=== PATIENT | female | born 1970 | race Caucasian/White ===

== ENCOUNTER 2024-01-16 13:26 | Observation (INO) | payer MEDICARE ==
[2024-01-16] MEDS ORDERED: Sodium Chloride 0.9% 1000 ML 1,000 ML ONE (14:05)
[2024-01-16] MEDS ORDERED: TYLENOL 325 MG ONE (14:05)
[2024-01-16 14:06] LABS: Absolute Neutrophil Ct (ANC) 15.36 x10^3/uL (1.4-6.9); BASOPHIL % 0.2 % (0.0-0.4); Basophil (Absolute #) 0.03 x10^3/uL (0-0.4); Eosinophil % 0.1 % (0.00-5.0); Eosinophil (Absolute #) 0.01 x10^3/uL (0-0.5); Hematocrit 45.3 % (35-47); Hemoglobin 15.2 g/dL (12.0-16.0); IMMATURE GRAN # 0.07 x10^3u/L (0.00-0.03); IMMATURE GRAN % 0.4 % (0.00-0.4); Lymphocyte (Absolute #) 0.63 x10^3/uL (1.0-4.6); Lymphocytes % 3.8 % (24.0-44.0); Mean Cell Volume 93.2 fL (78-100); Mean Corpuscular Hemoglobin 31.3 pg (26-32); Mean Corpuscular Hgb Concent. 33.6 g/dL (32-36); Mean Platelet Volume 12.2 fL (7.5-11.0); Monocyte (Absolute #) 0.63 x10^3/uL (0.0-1.3); Monocytes % 3.8 % (0.0-12.0); Neutrophil % 91.7 % (36.0-66.0); Platelet Count 126 x10^3/uL (150-450); Red Blood Count 4.86 x10^6/uL (4.1-5.4); Red Cell Distribution Width 13.2 % (11.5-14.0); White Blood Count 16.7 x10^3/uL (4.0-10.5)
--- NOTE | 2024-01-16 14:15 | XRAY ---
Indication: Fever. Comparison: None Portable chest demonstrates normal heart and lungs with incidental left base calcified granuloma. Bony thorax intact with osteopenia and mild degenerative changes.
[2024-01-16] MEDS: TYLENOL 325 MG PO STA (14:16)
[2024-01-16] MEDS: Sodium Chloride 0.9% 1000 ML 1,000 ML IV STA (14:18)
[2024-01-16] MEDS ORDERED: Hydromorphone 1 mg/ml Injection ONE (14:34)
[2024-01-16] MEDS: Hydromorphone 1 mg/ml Injection IV ONE (14:35)
[2024-01-16 14:36] LABS: ALBUMIN 3.2 g/dL (3.5-5.0); ANION GAP 11.5 MEQ/L (5-15); BILIRUBIN,TOTAL 0.5 mg/dL (0.2-1.3); Calcium 8.7 mg/dL (8.4-10.2); Creatinine 1 1.99 mg/dL (0.52-1.04); EST GLOMERULAR FILTRATION RATE 29.1 ML/MIN; Potassium 3.5 mmol/L (3.5-5.1); Total Protein 6.5 g/dL (6.3-8.2)
[2024-01-16] MEDS ORDERED: ROCEPHIN 1 GM / 100 ML NaCl 1 GM/100 ML IVPB IV ONE (14:42)
[2024-01-16] MEDS: ROCEPHIN 1 GM / 100 ML NaCl 1 GM/100 ML IVPB IV ONE (14:46)
[2024-01-16 14:50] LABS: Appearance Clear (Clear); Bacteria Moderate /HPF (None Seen); Bilirubin Negative (Negative); Blood Negative (Negative); Epithelial Cells None Seen /HPF (None Seen); Glucose, Urine Negative (Negative); Hyaline Casts NONE SEEN /LPF (0-2); Ketones Negative (Negative); Leukocyte Esterase Small (Negative); Nitrite Negative (Negative); Ph 5.5 (4.6-8.0); Protein,Urine Dip 100 (Negative); RBC 0-2 /HPF (0-5)
[2024-01-16 14:54] LABS: ADD URINE CULTURE? ORDERED SEPARATELY (NO)
[2024-01-16 15:01] LABS: INFLUENZA A NEGATIVE (NEGATIVE); INFLUENZA B NEGATIVE (NEGATIVE); RESPIRATORY SYNCTIAL VIRUS NEGATIVE (NEGATIVE); SARS-CoV-2 Xpert Express NEGATIVE (NEGATIVE)
--- NOTE | 2024-01-16 16:08 | ERPHSYRPT ---
- History of Present Illness Time Seen by Provider: 01/16/24 13:45 Source: patient, family Exam Limitations: no limitations Patient Subjective Stated Complaint: Pt states "I have something going on with my kidneys. I have also had high fever." Triage Nursing Assessment: Pt presented alert and oriented X 3, skin pwd. Pt ambulates with a slow gait, able to speak in clear full setnencse. Physician History: Patient is a 53-year-old white female who presents with a complaint of being ill for a week with fevers at home to 102.9 she complains of a headache anorexia fever foul-smelling urine and pain in her right flank. Timing/Duration: week(s) (1), worse Fever Severity: moderate Associated Symptoms: abdominal pain, headache Allergies/Adverse Reactions: ethinyl estradiol [From [facility] ()] Allergy (Mild, Verified 01/16/24 13:40) levonorgestrel [From [facility] ()] Allergy (Mild, Verified 01/16/24 13:40) Home Medications: Unobtainable 01/16/24 [History] Hx Tetanus, Diphtheria Vaccination/Date Given: No Hx Influenza Vaccination/Date Given: No Hx Pneumococcal Vaccination/Date Given: No Immunizations Up to Date: No Travel Risk - International Travel Have you traveled outside of the country in past 3 weeks: No - Emerging Infectious Disease Are you exhibiting symptoms associated with any current EIDs: Yes Symptoms: Fever, Headaches/Body Aches/ - Review of Systems Constitutional: Fever, Chills Eyes: No Symptoms Ears, Nose, & Throat: No Symptoms Respiratory: No Cough, No Dyspnea Cardiac: No Chest Pain, No Edema, No Syncope Abdominal/Gastrointestinal: No Abdominal Pain, No Nausea, No Vomiting, No Diarrhea Genitourinary Symptoms: No Dysuria Musculoskeletal: No Back Pain, No Neck Pain Skin: No Rash Neurological: No Dizziness, No Focal Weakness, No Sensory Changes Psychological: No Symptoms Endocrine: No Symptoms All Other Systems: Reviewed and Negative - Past Medical History Pertinent Past Medical History: Yes Neurological History: Migraines ENT History: No Pertinent History Cardiac History: High Cholesterol Respiratory History: No Pertinent History Endocrine Medical History: Diabetes Type II, Hypothyroidism Musculoskeletal History: Arthritis GI Medical History: GERD History: No Pertinent History Psycho-Social History: Anxiety, Depression Female Reproductive Disorders: No Pertinent History - Past Surgical History Past Surgical History: Yes Other Surgical History: c section x 3. sandy - Social History Smoking Status: Current every day smoker How long have you smoked: years Exposure to second hand smoke: Yes Drug Use: none - Nursing Vital Signs Nursing Vital Signs: Initial Vital Signs Temperature 101.2 F 01/16/24 13:33 Pulse Rate 108 H 01/16/24 13:33 Respiratory Rate 20 01/16/24 13:33 Blood Pressure 149/89 01/16/24 13:33 O2 Sat by Pulse Oximetry 95 01/16/24 13:33 Pain Scale Pain Intensity 3 - Physical Exam General Appearance: moderate distress, alert Eye Exam: PERRL/EOMI ENT Exam: normal ENT inspection, No pharyngeal erythema, No tonsillar exudate Neck Exam: supple, full range of motion, No meningismus Respiratory Exam: normal breath sounds, lungs clear, no respiratory distress Cardiovascular/Chest Exam: normal heart sounds, regular rate/rhythm, No murmur, No edema Gastrointestinal/Abdominal Exam: soft, non tender, no distention Extremity Exam: non-tender, normal range of motion, normal inspection, normal capillary refill Neurologic Exam: alert, oriented x 3, cooperative, advance scout II-XII nml as tested, normal mood/affect, sensation nml, No motor deficits Skin Exam: normal color, warm, dry, No rash SpO2 Interpretation: normal SpO2: 94 O2 Delivery: Room Air - Course Nursing assessment & vital signs reviewed: Yes - Radiology Exams Chest X-ray Interpretation: Reviewed by me Ordered Tests: Active Orders 24 hr Category Date Time [facility] [Cath for Specimen-Straight] STAT Care 01/16/24 14:34 Active CHEST 1 VIEW (PORTABLE) Stat Exams 01/16/24 13:54 Completed BLOOD CULTURE Stat Lab 01/16/24 14:15 Received CBC W DIFF Stat Lab 01/16/24 14:03 Completed CMP Stat Lab 01/16/24 14:03 Completed CULTURE,URINE Stat Lab 01/16/24 14:33 Received Lactic Acid Stat Lab 01/16/24 13:53 Completed MONO SCREEN Stat Lab 01/16/24 14:03 Completed UA W/RFX UR CULTURE Stat Lab 01/16/24 14:33 Completed Medication Summary Discontinued Medications Generic Name Dose Route Start Last Admin Trade Name Freq PRN Reason Stop Dose Admin Acetaminophen 650 mg 01/16/24 13:53 01/16/24 14:16 Acetaminophen 325 Mg Tablet PO 01/16/24 13:54 650 mg STAT STA Administration Acetaminophen Confirm 01/16/24 14:05 Acetaminophen 325 Mg Tablet Administered 01/16/24 14:06 Dose 650 mg .ROUTE .STK-MED ONE Droperidol 1.25 mg 01/16/24 14:54 01/16/24 14:54 Droperidol 5 Mg/2 Ml Vial IV 01/16/24 14:55 1.25 mg STAT ONE Administration Droperidol Confirm 01/16/24 14:53 Droperidol 5 Mg/2 Ml Vial Administered 01/16/24 14:54 Dose 5 mg .ROUTE .STK-MED ONE Hydromorphone HCl 1 mg 01/16/24 14:26 01/16/24 14:35 Hydromorphone 1 Mg/1ml Inj IV 01/16/24 14:27 1 mg STAT ONE Administration Hydromorphone HCl Confirm 01/16/24 14:34 Hydromorphone 1 Mg/1ml Inj Administered 01/16/24 14:35 Dose 1 mg .ROUTE .STK-MED ONE Sodium Chloride 1,000 mls @ 999 mls/hr 01/16/24 13:53 01/16/24 15:20 Sodium Chloride 0.9% 1000 Ml IV 01/16/24 14:53 Infused .Q1H1M STA Infusion Sodium Chloride Confirm 01/16/24 14:05 Sodium Chloride 0.9% 1000 Ml Administered 01/16/24 14:06 Dose 1,000 mls @ ud .ROUTE .STK-MED ONE Ceftriaxone Sodium Confirm 01/16/24 14:42 Rocephin 1 Gm / 100 Ml Nacl Administered 01/16/24 14:43 Dose 1 gm in 100 mls @ ud IV .STK-MED ONE Ceftriaxone Sodium 1 gm in 100 mls @ 200 mls/hr 01/16/24 14:43 01/16/24 15:19 Rocephin 1 Gm / 100 Ml Nacl IV 01/16/24 15:12 Infused STAT ONE Infusion Lab/Rad Data: Laboratory Result Diagrams 01/16/24 14:03 01/16/24 14:03 Laboratory Results 01/16/24 01/16/24 01/16/24 Range/Units 14:33 14:15 14:15 WBC (4.0-10.5) x10^3/uL RBC (4.1-5.4) x10^6/uL Hgb (12.0-16.0) g/dL Hct (35-47) % MCV (78-100) fL MCH (26-32) pg MCHC (32-36) g/dL RDW (11.5-14.0) % Plt Count (150-450) x10^3/uL MPV (7.5-11.0) fL Gran % (36.0-66.0) % Immature Gran % (Auto) (0.00-0.4) % Nucleat RBC Rel Count (0.00-0.1) % Eos # (Auto) (0-0.5) x10^3/uL Immature Gran # (Auto) (0.00-0.03) x10^3u/L Absolute Lymphs (auto) (1.0-4.6) x10^3/uL Absolute Monos (auto) (0.0-1.3) x10^3/uL Absolute Nucleated RBC (0.00-0.01) x10^3u/L Lymphocytes % (24.0-44.0) % Monocytes % (0.0-12.0) % Eosinophils % (0.00-5.0) % Basophils % (0.0-0.4) % Absolute Granulocytes (1.4-6.9) x10^3/uL Basophils # (0-0.4) x10^3/uL Sodium (135-145) mmol/L Potassium (3.5-5.1) mmol/L Chloride (98-107) mmol/L Carbon Dioxide (22-30) mmol/L Anion Gap (5-15) MEQ/L BUN (7-17) mg/dL Creatinine (0.52-1.04) mg/dL Estimated GFR ML/MIN Glucose (74-106) mg/dL Lactic Acid (0.4-2.0) Calcium (8.4-10.2) mg/dL Total Bilirubin (0.2-1.3) mg/dL AST (14-36) U/L ALT (0-35) U/L Alkaline Phosphatase (38-126) U/L Serum Total Protein (6.3-8.2) g/dL Albumin (3.5-5.0) g/dL Urine Color Yellow (Yellow) Urine Appearance Clear (Clear) Urine pH 5.5 (4.6-8.0) Ur Specific [place] 1.010 (1.005-1.030) Urine Protein 100 A (Negative) Urine Glucose (UA) Negative (Negative) mg/dL Urine Ketones Negative (Negative) Urine Blood Negative (Negative) Urine Nitrite Negative (Negative) Urine Bilirubin Negative (Negative) Urine Urobilinogen 1.0 A (0.2) mg/dL Ur Leukocyte Esterase Small A (Negative) U Hyaline Cast (Auto) NONE SEEN (0-2) /LPF Urine Microscopic RBC 0-2 (0-5) /HPF Urine Microscopic WBC 11-20 A (0-5) /HPF Ur Epithelial Cells None Seen (None Seen) /HPF Urine Bacteria Moderate A (None Seen) /HPF Urine Culture Reflexed ORDERED SEPARATELY (NO) Monoscreen (NEGATIVE) Influenza Type A Ag NEGATIVE (NEGATIVE) Influenza Type B Ag NEGATIVE (NEGATIVE) RSV (PCR) NEGATIVE (NEGATIVE) SARS-CoV-2 (PCR) NEGATIVE (NEGATIVE) Group A Strep Antibody NOT DETECTED (NEGATIVE) 01/16/24 01/16/24 01/16/24 Range/Units 14:03 14:03 14:03 WBC 16.7 H (4.0-10.5) x10^3/uL RBC 4.86 (4.1-5.4) x10^6/uL Hgb 15.2 (12.0-16.0) g/dL Hct 45.3 (35-47) % MCV 93.2 (78-100) fL MCH 31.3 (26-32) pg MCHC 33.6 (32-36) g/dL RDW 13.2 (11.5-14.0) % Plt Count 126 L (150-450) x10^3/uL MPV 12.2 H (7.5-11.0) fL Gran % 91.7 H (36.0-66.0) % Immature Gran % (Auto) 0.4 (0.00-0.4) % Nucleat RBC Rel Count 0.0 (0.00-0.1) % Eos # (Auto) 0.01 (0-0.5) x10^3/uL Immature Gran # (Auto) 0.07 H (0.00-0.03) x10^3u/L Absolute Lymphs (auto) 0.63 L (1.0-4.6) x10^3/uL Absolute Monos (auto) 0.63 (0.0-1.3) x10^3/uL Absolute Nucleated RBC 0.00 (0.00-0.01) x10^3u/L Lymphocytes % 3.8 L (24.0-44.0) % Monocytes % 3.8 (0.0-12.0) % Eosinophils % 0.1 (0.00-5.0) % Basophils % 0.2 (0.0-0.4) % Absolute Granulocytes 15.36 H (1.4-6.9) x10^3/uL Basophils # 0.03 (0-0.4) x10^3/uL Sodium 135 (135-145) mmol/L Potassium 3.5 (3.5-5.1) mmol/L Chloride 102 (98-107) mmol/L Carbon Dioxide 24 (22-30) mmol/L Anion Gap 11.5 (5-15) MEQ/L BUN 44 H (7-17) mg/dL Creatinine 1.99 H (0.52-1.04) mg/dL Estimated GFR 29.1 ML/MIN Glucose 119 H (74-106) mg/dL Lactic Acid (0.4-2.0) Calcium 8.7 (8.4-10.2) mg/dL Total Bilirubin 0.50 (0.2-1.3) mg/dL AST 34 (14-36) U/L ALT 31 (0-35) U/L Alkaline Phosphatase 177 H (38-126) U/L Serum Total Protein 6.5 (6.3-8.2) g/dL Albumin 3.2 L (3.5-5.0) g/dL Urine Color (Yellow) Urine Appearance (Clear) Urine pH (4.6-8.0) Ur Specific [place] (1.005-1.030) Urine Protein (Negative) Urine Glucose (UA) (Negative) mg/dL Urine Ketones (Negative) Urine Blood (Negative) Urine Nitrite (Negative) Urine Bilirubin (Negative) Urine Urobilinogen (0.2) mg/dL Ur Leukocyte Esterase (Negative) U Hyaline Cast (Auto) (0-2) /LPF Urine Microscopic RBC (0-5) /HPF Urine Microscopic WBC (0-5) /HPF Ur Epithelial Cells (None Seen) /HPF Urine Bacteria (None Seen) /HPF Urine Culture Reflexed (NO) Monoscreen NEGATIVE (NEGATIVE) Influenza Type A Ag (NEGATIVE) Influenza Type B Ag (NEGATIVE) RSV (PCR) (NEGATIVE) SARS-CoV-2 (PCR) (NEGATIVE) Group A Strep Antibody (NEGATIVE) 01/16/24 Range/Units 13:53 WBC (4.0-10.5) x10^3/uL RBC (4.1-5.4) x10^6/uL Hgb (12.0-16.0) g/dL Hct (35-47) % MCV (78-100) fL MCH (26-32) pg MCHC (32-36) g/dL RDW (11.5-14.0) % Plt Count (150-450) x10^3/uL MPV (7.5-11.0) fL Gran % (36.0-66.0) % Immature Gran % (Auto) (0.00-0.4) % Nucleat RBC Rel Count (0.00-0.1) % Eos # (Auto) (0-0.5) x10^3/uL Immature Gran # (Auto) (0.00-0.03) x10^3u/L Absolute Lymphs (auto) (1.0-4.6) x10^3/uL Absolute Monos (auto) (0.0-1.3) x10^3/uL Absolute Nucleated RBC (0.00-0.01) x10^3u/L Lymphocytes % (24.0-44.0) % Monocytes % (0.0-12.0) % Eosinophils % (0.00-5.0) % Basophils % (0.0-0.4) % Absolute Granulocytes (1.4-6.9) x10^3/uL Basophils # (0-0.4) x10^3/uL Sodium (135-145) mmol/L Potassium (3.5-5.1) mmol/L Chloride (98-107) mmol/L Carbon Dioxide (22-30) mmol/L Anion Gap (5-15) MEQ/L BUN (7-17) mg/dL Creatinine (0.52-1.04) mg/dL Estimated GFR ML/MIN Glucose (74-106) mg/dL Lactic Acid 2.0 (0.4-2.0) Calcium (8.4-10.2) mg/dL Total Bilirubin (0.2-1.3) mg/dL AST (14-36) U/L ALT (0-35) U/L Alkaline Phosphatase (38-126) U/L Serum Total Protein (6.3-8.2) g/dL Albumin (3.5-5.0) g/dL Urine Color (Yellow) Urine Appearance (Clear) Urine pH (4.6-8.0) Ur Specific [place] (1.005-1.030) Urine Protein (Negative) Urine Glucose (UA) (Negative) mg/dL Urine Ketones (Negative) Urine Blood (Negative) Urine Nitrite (Negative) Urine Bilirubin (Negative) Urine Urobilinogen (0.2) mg/dL Ur Leukocyte Esterase (Negative) U Hyaline Cast (Auto) (0-2) /LPF Urine Microscopic RBC (0-5) /HPF Urine Microscopic WBC (0-5) /HPF Ur Epithelial Cells (None Seen) /HPF Urine Bacteria (None Seen) /HPF Urine Culture Reflexed (NO) Monoscreen (NEGATIVE) Influenza Type A Ag (NEGATIVE) Influenza Type B Ag (NEGATIVE) RSV (PCR) (NEGATIVE) SARS-CoV-2 (PCR) (NEGATIVE) Group A Strep Antibody (NEGATIVE) - Progress Progress: improved Medical Desision Making - Independent Historian Additional History obtained from: Family - Discussion of managment Care discussed with:: hospitalist (Dr Lawrence) Reviewed:: Test results Agreed on:: Treatment plan, place in obs Will see patient: in hospital - Diagnostic Testing Diagnostic test were ordered, analyzed, and reviewed by me: Yes Radiological Interpretation: Reviewed by me - Risk of complications The pt has a mod risk of morbidity or mortality based on: Need for prescription drug management - Departure Departure Disposition: Observation Clinical Impression: Urinary tract infection, Acute kidney injury Condition: Fair Critical Care Time: No Referrals: KEE ADLER PA [Primary Care Provider] - Follow up/PCP as directed
--- NOTE | 2024-01-16 16:36 | PCM.HP ---
History of Present Illness - Chief Complaint Chief Complaint: Urinary tract infection Date: 01/16/24 History of Present Illness: is a 53 year old female with PMHX of migraines, hyperlipidemia, Type II DM, hypothyroidism, OA, GERD, anxiety, depression, and daily smoker. Pt came in to the ER today stating "I have something going on with my kidneys and I have also had high fever." She C/O being ill for over 1 week with fevers at home up to 102.9. She also complains of a headache, fever, foul-smelling urine, leg cramps,and pain in her right flank. She has intermittent, stabbing pain around umbilical area 6/10 pain. Nothing makes sxs worse or better. She has not tried anything to help her sxs. She reports chronic diarrhea since gallbladder removed and does take medication for this. She does not have a hx of repeat UTI's. Labs shows IMELDA and UTI. She was treated in ER with 1LNS fluid bolus and Ceftriaxone. Will continue IVF and antibiotics. - Review of Systems Constitutional: Fever, Weakness, No Chills Eyes: No Symptoms Ears, Nose, & Throat: No Symptoms Respiratory: No Cough, No Short Of Breath Cardiac: No Chest Pain, No Edema, No Syncope Abdominal/Gastrointestinal: Abdominal Pain, Diarrhea (chronic ), No Nausea, No Vomiting Genitourinary Symptoms: Dysuria, Other (foul smelling urine) Musculoskeletal: Other (leg cramps), No Back Pain, No Neck Pain Skin: No Rash Neurological: No Dizziness, No Focal Weakness, No Sensory Changes Psychological: No Symptoms Endocrine: No Symptoms Hematologic/Lymphatic: No Symptoms Immunological/Allergic: No Symptoms Medications & Allergies Home Medications: Home Medication List Albuterol Sulfate [Proair Respiclick] 2 puff IH Q4H PRN PRN 01/16/24 [History Confirmed 01/16/24] Buspirone HCl 30 mg PO BIDPRN PRN 01/16/24 [History Confirmed 01/16/24] Colestipol HCl [Colestid] 2 gm PO DAILY 01/16/24 [History Confirmed 01/16/24] Levothyroxine Sodium 150 Mcg [Synthroid 150 Mcg] 150 mcg PO DAILY 01/16/24 [History Confirmed 01/16/24] Metformin HCl 500 mg [Glucophage 500 MG] 1,000 mg PO BIDWM 01/16/24 [History Confirmed 01/16/24] Mirtazapine [Remeron] 15 mg PO HS 01/16/24 [History Confirmed 01/16/24] Oxycodone HCl 5 mg Ir [Oxy-IR 5 MG] 10 mg PO Q6HPRN PRN 01/16/24 [History Confirmed 01/16/24] PANTOPRAZOLE 40 mg Tablet [Protonix 40MG Tablet] 40 mg PO DAILY 01/16/24 [History Confirmed 01/16/24] Simvastatin [Zocor] 40 mg PO HS 01/16/24 [History Confirmed 01/16/24] Vilazodone HCl 40 mg PO DAILY 01/16/24 [History Confirmed 01/16/24] Zolpidem Tartrate 10 mg PO HS 01/16/24 [History Confirmed 01/16/24] ondansetron HCL [Ondansetron HCl] 4 mg PO Q6HPRN PRN 01/16/24 [History Confirmed 01/16/24] Allergies/Adverse Reactions: Allergies Allergy/AdvReac Type Severity Reaction Status Date / Time ethinyl estradiol Allergy Mild Verified 01/16/24 13:40 [From Seasonale (91)] levonorgestrel Allergy Mild Verified 01/16/24 13:40 [From Seasonale (91)] - Past Medical History Past Medical History: Yes Neurological History: Migraines ENT History: No Pertinent History Cardiac History: High Cholesterol Respiratory History: No Pertinent History Endocrine Medical History: Diabetes Type II, Hypothyroidism Musculoskelatal History: Arthritis GI Medical History: GERD History: No Pertinent History Pyscho-Social History: Anxiety, Depression Reproductive Disorders: No Pertinent History - Past Surgical History Past Surgical History: Yes Other Surgical History: c section x 3. sandy - Social History Smoking Status: Current every day smoker How long have you smoked: years Exposure to second hand smoke: Yes Alcohol: None Drug Use: none - Social Determinants of Health Will the patient participate in the screening: Yes Do you worry about a steady place to live?: No Do you have any problems with any of the following?: No known problems In the past 12 months,have you had to go without utilities?: No Have you or anyone in your house had to go without enough: No Transportation Issues: No Has anyone in your support network made you feel unsafe?: No - Physical Exam Vital Signs: Vital Signs - 24 hr Temp Pulse Resp BP BP Pulse Ox 01/16/24 16:14 94 L 01/16/24 16:00 102 H 15 113/94 96 01/16/24 15:45 104 H 16 113/80 94 L 01/16/24 15:30 133/80 90 L 01/16/24 15:15 110 H 16 150/82 92 L 01/16/24 15:00 105 H 127/80 96 01/16/24 14:46 165/121 95 01/16/24 14:45 95 01/16/24 14:40 96 01/16/24 14:30 94 L 01/16/24 14:20 106 H 93 L 01/16/24 14:17 94 L 01/16/24 14:00 130/85 95 01/16/24 13:45 138/79 93 L 01/16/24 13:34 149/89 86 L 01/16/24 13:33 101.2 F 108 H 20 149/89 95 General Appearance: mild distress, alert, obese Neurologic Exam: alert, oriented x 3, cooperative, normal mood/affect, nml cerebellar function, nml station & gait, sensation nml, No motor deficits Eye Exam: PERRL/EOMI, eyes nml inspection Ears, Nose, Throat Exam: normal ENT inspection, TMs normal, pharynx normal, moist mucous membranes Neck Exam: normal inspection, non-tender, supple, full range of motion Respiratory Exam: normal breath sounds, lungs clear, No respiratory distress Cardiovascular Exam: regular rate/rhythm, normal heart sounds, normal peripheral pulses, tachycardia Gastrointestinal/Abdomen Exam: soft, normal bowel sounds, tenderness (periumbilical), No mass Back Exam: normal inspection, normal range of motion, No CVA tenderness, No vertebral tenderness Extremity Exam: normal inspection, normal range of motion, pelvis stable, No lurdes's sign Skin Exam: normal color, warm, dry, No rash Lymphatic Exam: No adenopathy Results - Labs Lab/Micro Results: Lab Results-Last 24 Hours 01/16/24 01/16/24 01/16/24 Range/Units 13:53 14:03 14:03 WBC 16.7 H (4.0-10.5) x10^3/uL RBC 4.86 (4.1-5.4) x10^6/uL Hgb 15.2 (12.0-16.0) g/dL Hct 45.3 (35-47) % MCV 93.2 (78-100) fL MCH 31.3 (26-32) pg MCHC 33.6 (32-36) g/dL RDW 13.2 (11.5-14.0) % Plt Count 126 L (150-450) x10^3/uL MPV 12.2 H (7.5-11.0) fL Gran % 91.7 H (36.0-66.0) % Immature Gran % (Auto) 0.4 (0.00-0.4) % Nucleat RBC Rel Count 0.0 (0.00-0.1) % Eos # (Auto) 0.01 (0-0.5) x10^3/uL Immature Gran # (Auto) 0.07 H (0.00-0.03) x10^3u/L Absolute Lymphs (auto) 0.63 L (1.0-4.6) x10^3/uL Absolute Monos (auto) 0.63 (0.0-1.3) x10^3/uL Absolute Nucleated RBC 0.00 (0.00-0.01) x10^3u/L Lymphocytes % 3.8 L (24.0-44.0) % Monocytes % 3.8 (0.0-12.0) % Eosinophils % 0.1 (0.00-5.0) % Basophils % 0.2 (0.0-0.4) % Absolute Granulocytes 15.36 H (1.4-6.9) x10^3/uL Basophils # 0.03 (0-0.4) x10^3/uL Sodium 135 (135-145) mmol/L Potassium 3.5 (3.5-5.1) mmol/L Chloride 102 (98-107) mmol/L Carbon Dioxide 24 (22-30) mmol/L Anion Gap 11.5 (5-15) MEQ/L BUN 44 H (7-17) mg/dL Creatinine 1.99 H (0.52-1.04) mg/dL Estimated GFR 29.1 ML/MIN Glucose 119 H (74-106) mg/dL Lactic Acid 2.0 (0.4-2.0) Calcium 8.7 (8.4-10.2) mg/dL Total Bilirubin 0.50 (0.2-1.3) mg/dL AST 34 (14-36) U/L ALT 31 (0-35) U/L Alkaline Phosphatase 177 H (38-126) U/L Serum Total Protein 6.5 (6.3-8.2) g/dL Albumin 3.2 L (3.5-5.0) g/dL Urine Color (Yellow) Urine Appearance (Clear) Urine pH (4.6-8.0) Ur Specific [place] (1.005-1.030) Urine Protein (Negative) Urine Glucose (UA) (Negative) mg/dL Urine Ketones (Negative) Urine Blood (Negative) Urine Nitrite (Negative) Urine Bilirubin (Negative) Urine Urobilinogen (0.2) mg/dL Ur Leukocyte Esterase (Negative) U Hyaline Cast (Auto) (0-2) /LPF Urine Microscopic RBC (0-5) /HPF Urine Microscopic WBC (0-5) /HPF Ur Epithelial Cells (None Seen) /HPF Urine Bacteria (None Seen) /HPF Urine Culture Reflexed (NO) Monoscreen (NEGATIVE) Influenza Type A Ag (NEGATIVE) Influenza Type B Ag (NEGATIVE) RSV (PCR) (NEGATIVE) SARS-CoV-2 (PCR) (NEGATIVE) Group A Strep Antibody (NEGATIVE) 01/16/24 01/16/24 01/16/24 Range/Units 14:03 14:15 14:15 WBC (4.0-10.5) x10^3/uL RBC (4.1-5.4) x10^6/uL Hgb (12.0-16.0) g/dL Hct (35-47) % MCV (78-100) fL MCH (26-32) pg MCHC (32-36) g/dL RDW (11.5-14.0) % Plt Count (150-450) x10^3/uL MPV (7.5-11.0) fL Gran % (36.0-66.0) % Immature Gran % (Auto) (0.00-0.4) % Nucleat RBC Rel Count (0.00-0.1) % Eos # (Auto) (0-0.5) x10^3/uL Immature Gran # (Auto) (0.00-0.03) x10^3u/L Absolute Lymphs (auto) (1.0-4.6) x10^3/uL Absolute Monos (auto) (0.0-1.3) x10^3/uL Absolute Nucleated RBC (0.00-0.01) x10^3u/L Lymphocytes % (24.0-44.0) % Monocytes % (0.0-12.0) % Eosinophils % (0.00-5.0) % Basophils % (0.0-0.4) % Absolute Granulocytes (1.4-6.9) x10^3/uL Basophils # (0-0.4) x10^3/uL Sodium (135-145) mmol/L Potassium (3.5-5.1) mmol/L Chloride (98-107) mmol/L Carbon Dioxide (22-30) mmol/L Anion Gap (5-15) MEQ/L BUN (7-17) mg/dL Creatinine (0.52-1.04) mg/dL Estimated GFR ML/MIN Glucose (74-106) mg/dL Lactic Acid (0.4-2.0) Calcium (8.4-10.2) mg/dL Total Bilirubin (0.2-1.3) mg/dL AST (14-36) U/L ALT (0-35) U/L Alkaline Phosphatase (38-126) U/L Serum Total Protein (6.3-8.2) g/dL Albumin (3.5-5.0) g/dL Urine Color (Yellow) Urine Appearance (Clear) Urine pH (4.6-8.0) Ur Specific [place] (1.005-1.030) Urine Protein (Negative) Urine Glucose (UA) (Negative) mg/dL Urine Ketones (Negative) Urine Blood (Negative) Urine Nitrite (Negative) Urine Bilirubin (Negative) Urine Urobilinogen (0.2) mg/dL Ur Leukocyte Esterase (Negative) U Hyaline Cast (Auto) (0-2) /LPF Urine Microscopic RBC (0-5) /HPF Urine Microscopic WBC (0-5) /HPF Ur Epithelial Cells (None Seen) /HPF Urine Bacteria (None Seen) /HPF Urine Culture Reflexed (NO) Monoscreen NEGATIVE (NEGATIVE) Influenza Type A Ag NEGATIVE (NEGATIVE) Influenza Type B Ag NEGATIVE (NEGATIVE) RSV (PCR) NEGATIVE (NEGATIVE) SARS-CoV-2 (PCR) NEGATIVE (NEGATIVE) Group A Strep Antibody NOT DETECTED (NEGATIVE) 01/16/24 Range/Units 14:33 WBC (4.0-10.5) x10^3/uL RBC (4.1-5.4) x10^6/uL Hgb (12.0-16.0) g/dL Hct (35-47) % MCV (78-100) fL MCH (26-32) pg MCHC (32-36) g/dL RDW (11.5-14.0) % Plt Count (150-450) x10^3/uL MPV (7.5-11.0) fL Gran % (36.0-66.0) % Immature Gran % (Auto) (0.00-0.4) % Nucleat RBC Rel Count (0.00-0.1) % Eos # (Auto) (0-0.5) x10^3/uL Immature Gran # (Auto) (0.00-0.03) x10^3u/L Absolute Lymphs (auto) (1.0-4.6) x10^3/uL Absolute Monos (auto) (0.0-1.3) x10^3/uL Absolute Nucleated RBC (0.00-0.01) x10^3u/L Lymphocytes % (24.0-44.0) % Monocytes % (0.0-12.0) % Eosinophils % (0.00-5.0) % Basophils % (0.0-0.4) % Absolute Granulocytes (1.4-6.9) x10^3/uL Basophils # (0-0.4) x10^3/uL Sodium (135-145) mmol/L Potassium (3.5-5.1) mmol/L Chloride (98-107) mmol/L Carbon Dioxide (22-30) mmol/L Anion Gap (5-15) MEQ/L BUN (7-17) mg/dL Creatinine (0.52-1.04) mg/dL Estimated GFR ML/MIN Glucose (74-106) mg/dL Lactic Acid (0.4-2.0) Calcium (8.4-10.2) mg/dL Total Bilirubin (0.2-1.3) mg/dL AST (14-36) U/L ALT (0-35) U/L Alkaline Phosphatase (38-126) U/L Serum Total Protein (6.3-8.2) g/dL Albumin (3.5-5.0) g/dL Urine Color Yellow (Yellow) Urine Appearance Clear (Clear) Urine pH 5.5 (4.6-8.0) Ur Specific [place] 1.010 (1.005-1.030) Urine Protein 100 A (Negative) Urine Glucose (UA) Negative (Negative) mg/dL Urine Ketones Negative (Negative) Urine Blood Negative (Negative) Urine Nitrite Negative (Negative) Urine Bilirubin Negative (Negative) Urine Urobilinogen 1.0 A (0.2) mg/dL Ur Leukocyte Esterase Small A (Negative) U Hyaline Cast (Auto) NONE SEEN (0-2) /LPF Urine Microscopic RBC 0-2 (0-5) /HPF Urine Microscopic WBC 11-20 A (0-5) /HPF Ur Epithelial Cells None Seen (None Seen) /HPF Urine Bacteria Moderate A (None Seen) /HPF Urine Culture Reflexed ORDERED SEPARATELY (NO) Monoscreen (NEGATIVE) Influenza Type A Ag (NEGATIVE) Influenza Type B Ag (NEGATIVE) RSV (PCR) (NEGATIVE) SARS-CoV-2 (PCR) (NEGATIVE) Group A Strep Antibody (NEGATIVE) - Radiology Impressions Radiology Exams & Impressions: Radiology Procedures Category Date Time Status CHEST 1 VIEW (PORTABLE) Stat Exams 01/16/24 13:54 Completed Assessment/Plan (1) Urinary tract infection Current Visit: Yes Status: Acute Assessment & Plan: - 1L NS gave in ER- Cont IVF at 100ml/hr - Ceftriaxone started in ER - Continue - Lactic acid 2.0 in ER- will recheck in AM - UC and BC x2 pending - WBC 16.7 - associated tachycardia - Platelets 126 Code(s): N39.0 - URINARY TRACT INFECTION, SITE NOT SPECIFIED (2) Acute kidney injury Current Visit: Yes Status: Acute Assessment & Plan: - 2:2 UTI - IVF - creat 1.99- baseline normal - Hold metformin Code(s): N17.9 - ACUTE KIDNEY FAILURE, UNSPECIFIED (3) Abdominal pain Current Visit: Yes Status: Acute Qualifiers: Abdominal location: periumbilical Qualified Code(s): R10.33 - Periumbilical pain Assessment & Plan: - CT abd- pending Code(s): R10.9 - UNSPECIFIED ABDOMINAL PAIN (4) Thrombocytopenia Current Visit: Yes Status: Acute Assessment & Plan: - platelets 126- monitor - Likely 2:2 infection- no prior hx after reviewing old labs. - Chest XR Portable chest demonstrates normal heart and lungs with incidental left base calcified granuloma. Bony thorax intact with osteopenia and mild degenerative changes. (5) Hyperlipemia Current Visit: Yes Status: Chronic Assessment & Plan: - hold statin for now Code(s): E78.5 - HYPERLIPIDEMIA, UNSPECIFIED (6) GERD (gastroesophageal reflux disease) Current Visit: Yes Status: Chronic Assessment & Plan: - Continue protonix Code(s): K21.9 - GASTRO-ESOPHAGEAL REFLUX DISEASE WITHOUT ESOPHAGITIS (7) Depression with anxiety Current Visit: Yes Status: Chronic Assessment & Plan: - Continue buspirone - Hold remeron d/t IMELDA Code(s): F41.8 - OTHER SPECIFIED ANXIETY DISORDERS (8) Smoker Current Visit: Yes Status: Chronic Assessment & Plan: - advised smoking cessation - nicotine patch Code(s): F17.200 - NICOTINE DEPENDENCE, UNSPECIFIED, UNCOMPLICATED (9) Morbid obesity with BMI of 40.0-44.9, adult Current Visit: Yes Status: Chronic Assessment & Plan: - advised ADA diet and exercise control Code(s): E66.01 - MORBID (SEVERE) OBESITY DUE TO EXCESS CALORIES; Z68.41 - BODY MASS INDEX [BMI] 40.0-44.9, ADULT (10) Type II diabetes mellitus Current Visit: Yes Status: Chronic Assessment & Plan: - Appears controlled per old A1C results - accuchecks ac/hs - Humalog s/s. - A1C - Carb Consistent diet VTE: Heparin PPI: Protonix Next of KIN: none Code status: Full D/C plan: 1-2 days Telemedicine Encounter - Telemedicine Encounter Telemedicine Encounter: The entirety of this encounter was performed via Telemedicine"
[2024-01-16] MEDS ORDERED: Compazine 10 MG/2 ML IV PRN (16:38)
[2024-01-16] MEDS ORDERED: HUMALOG SQ PRN (16:45)
[2024-01-16] MEDS: Sodium Chloride 0.9% 1000 ML 1,000 ML IV SCH (17:03)
[2024-01-16] MEDS: Nicoderm CQ 21 MG TOP SCH (17:04)
[2024-01-16] MEDS ORDERED: Narcan 0.4 MG/ML IV PRN (17:24)
[2024-01-16] MEDS ORDERED: ZOFRAN ODT 4 MG PO PRN (17:25)
[2024-01-16] MEDS ORDERED: BUSPAR 5 MG PO PRN (17:25)
[2024-01-16] MEDS ORDERED: VENTOLIN COMMON CANISTER IH PRN (17:26)
[2024-01-16] MEDS ORDERED: MEDICATION INTERVENTION MC SCH ×2 (17:30)
[2024-01-16] MEDS: ULTRAM 50 MG PO PRN (19:16)
[2024-01-16] MEDS: Ambien 10 MG PO SCH (21:44)
[2024-01-16] MEDS: HEPARIN 5000 UNITS/0.5 ML (HIGH RISK MED) SQ SCH (21:44)
[2024-01-16] MEDS: TYLENOL 325 MG PO PRN (21:51)
[2024-01-17 04:40] LABS: Hematocrit 41.7 % (35-47); Hemoglobin 13.9 g/dL (12.0-16.0); Mean Cell Volume 94.1 fL (78-100); Mean Corpuscular Hemoglobin 31.4 pg (26-32); Mean Corpuscular Hgb Concent. 33.3 g/dL (32-36); Mean Platelet Volume 12.7 fL (7.5-11.0); Platelet Count 115 x10^3/uL (150-450); Red Blood Count 4.43 x10^6/uL (4.1-5.4); Red Cell Distribution Width 13.8 % (11.5-14.0)
[2024-01-17 05:04] LABS: ALBUMIN 2.9 g/dL (3.5-5.0); ANION GAP 8.3 MEQ/L (5-15); BILIRUBIN,TOTAL 0.5 mg/dL (0.2-1.3); Calcium 8.2 mg/dL (8.4-10.2); Creatinine 1 1.74 mg/dL (0.52-1.04); EST GLOMERULAR FILTRATION RATE 34.2 ML/MIN; Potassium 3.5 mmol/L (3.5-5.1); Total Protein 5.8 g/dL (6.3-8.2)
--- NOTE | 2024-01-17 08:41 | XRAY ---
Indication: Umbilical pain. Fever. Multiple contiguous axial images obtained through the abdomen only without contrast as ordered. Comparison: None Lung bases demonstrate mild dependent atelectasis and small left lower lobe calcified granuloma. No infiltrate or effusion. Heart not enlarged. Small hiatal hernia. Stomach is distended with food. Noncontrasted stomach and visualized bowel loops appear nonobstructed. Incidental splenic calcified granulomas and cholecystectomy clips. Prominent and edematous right kidney with mild hydronephrosis, perinephric stranding, and mild hydroureter up to 9-10 mm. Distal obstructive uropathy is of primary concern. No free fluid/air. Remaining liver, pancreas, spleen, adrenal glands, left kidney, and proximal left ureter are unremarkable for noncontrast exam. Mild scattered aortoiliac calcifications without AAA. Osseous structures intact with mild degenerative changes throughout thoracolumbar spine. Tiny fatty umbilical hernia. Impression: 1. Prominent and edematous right kidney with mild hydronephrosis, perinephric stranding, and mild hydroureter. Rule out distal obstructive uropathy. 2. Chronic findings including hiatal hernia, arteriosclerotic disease, chronic bony findings, fatty umbilical hernia, and old granulomatous disease.
[2024-01-17] MEDS: ULTRAM 50 MG PO PRN (09:01)
--- NOTE | 2024-01-17 09:39 | PCM.DS ---
Discharge Summary Date of Admission: 01/16/24 16:30 Date of Discharge: 01/17/24 Admitting Physician: SHANITA MORALES MD Primary Care Provider: KEE ADLER Allergies Allergies ethinyl estradiol [From [facility] ()] Allergy (Mild, Verified 01/16/24 13:40) levonorgestrel [From [facility] (91)] Allergy (Mild, Verified 01/16/24 13:40) Hospital Summary - Hospital Course Hospital Course: 01/16/24 is a 53 year old female with PMHX of migraines, hyperlipidemia, Type II DM, hypothyroidism, OA, GERD, anxiety, depression, and daily smoker. Pt came in to the ER today stating "I have something going on with my kidneys and I have also had high fever." She C/O being ill for over 1 week with fevers at home up to 102.9. She also complains of a headache, fever, foul-smelling urine, leg cramps,and pain in her right flank. She has intermittent, stabbing pain around umbilical area 6/10 pain. Nothing makes sxs worse or better. She has not tried anything to help her sxs. She reports chronic diarrhea since gallbladder removed and does take medication for this. She does not have a hx of repeat UTI's. Labs shows IMELDA and UTI. She was treated in ER with 1LNS fluid bolus and Ceftriaxone. Will continue IVF and antibiotics. 01/17/24 Pt resting in bed. She continues to have right flank pain 8/[address] results came back today and show prominent and edematous right kidney with mild hydronephrosis, perinephric stranding, and mild hydroureter. Rule out distal obstructive uropathy. Will need to transfer to higher level of care for urology evaluation. Discussed with findings and need for transfer with pt. Pt denies CP, SOB, V/D. - Vitals & Intake/Output Vital Signs: Vital Signs Temperature 98.4 F 01/17/24 06:52 Pulse Rate 101 H 01/17/24 07:26 Respiratory Rate 18 01/17/24 07:26 Blood Pressure 131/73 01/17/24 06:52 O2 Sat by Pulse Oximetry 92 L 01/17/24 07:26 Intake & Output: Intake & Output 04/01/15/24 01/16/24 01/17/24 11:59 11:59 11:59 11:59 Intake Total 1260 Output Total 1000 Balance 260 Weight 110.9 kg - Lab Result Diagrams: 01/17/24 04:29 01/17/24 04:29 Lab Results-Last 24 Hrs: Lab Results-Last 24 Hours 01/16/24 01/16/24 01/16/24 Range/Units 13:53 14:03 14:03 WBC 16.7 H (4.0-10.5) x10^3/uL RBC 4.86 (4.1-5.4) x10^6/uL Hgb 15.2 (12.0-16.0) g/dL Hct 45.3 (35-47) % MCV 93.2 (78-100) fL MCH 31.3 (26-32) pg MCHC 33.6 (32-36) g/dL RDW 13.2 (11.5-14.0) % Plt Count 126 L (150-450) x10^3/uL MPV 12.2 H (7.5-11.0) fL Gran % 91.7 H (36.0-66.0) % Immature Gran % (Auto) 0.4 (0.00-0.4) % Nucleat RBC Rel Count 0.0 (0.00-0.1) % Eos # (Auto) 0.01 (0-0.5) x10^3/uL Immature Gran # (Auto) 0.07 H (0.00-0.03) x10^3u/L Absolute Lymphs (auto) 0.63 L (1.0-4.6) x10^3/uL Absolute Monos (auto) 0.63 (0.0-1.3) x10^3/uL Absolute Nucleated RBC 0.00 (0.00-0.01) x10^3u/L Lymphocytes % 3.8 L (24.0-44.0) % Monocytes % 3.8 (0.0-12.0) % Eosinophils % 0.1 (0.00-5.0) % Basophils % 0.2 (0.0-0.4) % Absolute Granulocytes 15.36 H (1.4-6.9) x10^3/uL Basophils # 0.03 (0-0.4) x10^3/uL Sodium 135 (135-145) mmol/L Potassium 3.5 (3.5-5.1) mmol/L Chloride 102 (98-107) mmol/L Carbon Dioxide 24 (22-30) mmol/L Anion Gap 11.5 (5-15) MEQ/L BUN 44 H (7-17) mg/dL Creatinine 1.99 H (0.52-1.04) mg/dL Estimated GFR 29.1 ML/MIN Glucose 119 H (74-106) mg/dL POC Glucometer (74 to 106) mg/dL Hemoglobin A1c (4.5-6.0) % Lactic Acid 2.0 (0.4-2.0) Calcium 8.7 (8.4-10.2) mg/dL Total Bilirubin 0.50 (0.2-1.3) mg/dL AST 34 (14-36) U/L ALT 31 (0-35) U/L Alkaline Phosphatase 177 H (38-126) U/L Serum Total Protein 6.5 (6.3-8.2) g/dL Albumin 3.2 L (3.5-5.0) g/dL Urine Color (Yellow) Urine Appearance (Clear) Urine pH (4.6-8.0) Ur Specific [place] (1.005-1.030) Urine Protein (Negative) Urine Glucose (UA) (Negative) mg/dL Urine Ketones (Negative) Urine Blood (Negative) Urine Nitrite (Negative) Urine Bilirubin (Negative) Urine Urobilinogen (0.2) mg/dL Ur Leukocyte Esterase (Negative) U Hyaline Cast (Auto) (0-2) /LPF Urine Microscopic RBC (0-5) /HPF Urine Microscopic WBC (0-5) /HPF Ur Epithelial Cells (None Seen) /HPF Urine Bacteria (None Seen) /HPF Urine Culture Reflexed (NO) Monoscreen (NEGATIVE) Influenza Type A Ag (NEGATIVE) Influenza Type B Ag (NEGATIVE) RSV (PCR) (NEGATIVE) SARS-CoV-2 (PCR) (NEGATIVE) Group A Strep Antibody (NEGATIVE) 01/16/24 01/16/24 01/16/24 Range/Units 14:03 14:15 14:15 WBC (4.0-10.5) x10^3/uL RBC (4.1-5.4) x10^6/uL Hgb (12.0-16.0) g/dL Hct (35-47) % MCV (78-100) fL MCH (26-32) pg MCHC (32-36) g/dL RDW (11.5-14.0) % Plt Count (150-450) x10^3/uL MPV (7.5-11.0) fL Gran % (36.0-66.0) % Immature Gran % (Auto) (0.00-0.4) % Nucleat RBC Rel Count (0.00-0.1) % Eos # (Auto) (0-0.5) x10^3/uL Immature Gran # (Auto) (0.00-0.03) x10^3u/L Absolute Lymphs (auto) (1.0-4.6) x10^3/uL Absolute Monos (auto) (0.0-1.3) x10^3/uL Absolute Nucleated RBC (0.00-0.01) x10^3u/L Lymphocytes % (24.0-44.0) % Monocytes % (0.0-12.0) % Eosinophils % (0.00-5.0) % Basophils % (0.0-0.4) % Absolute Granulocytes (1.4-6.9) x10^3/uL Basophils # (0-0.4) x10^3/uL Sodium (135-145) mmol/L Potassium (3.5-5.1) mmol/L Chloride (98-107) mmol/L Carbon Dioxide (22-30) mmol/L Anion Gap (5-15) MEQ/L BUN (7-17) mg/dL Creatinine (0.52-1.04) mg/dL Estimated GFR ML/MIN Glucose (74-106) mg/dL POC Glucometer (74 to 106) mg/dL Hemoglobin A1c (4.5-6.0) % Lactic Acid (0.4-2.0) Calcium (8.4-10.2) mg/dL Total Bilirubin (0.2-1.3) mg/dL AST (14-36) U/L ALT (0-35) U/L Alkaline Phosphatase (38-126) U/L Serum Total Protein (6.3-8.2) g/dL Albumin (3.5-5.0) g/dL Urine Color (Yellow) Urine Appearance (Clear) Urine pH (4.6-8.0) Ur Specific [place] (1.005-1.030) Urine Protein (Negative) Urine Glucose (UA) (Negative) mg/dL Urine Ketones (Negative) Urine Blood (Negative) Urine Nitrite (Negative) Urine Bilirubin (Negative) Urine Urobilinogen (0.2) mg/dL Ur Leukocyte Esterase (Negative) U Hyaline Cast (Auto) (0-2) /LPF Urine Microscopic RBC (0-5) /HPF Urine Microscopic WBC (0-5) /HPF Ur Epithelial Cells (None Seen) /HPF Urine Bacteria (None Seen) /HPF Urine Culture Reflexed (NO) Monoscreen NEGATIVE (NEGATIVE) Influenza Type A Ag NEGATIVE (NEGATIVE) Influenza Type B Ag NEGATIVE (NEGATIVE) RSV (PCR) NEGATIVE (NEGATIVE) SARS-CoV-2 (PCR) NEGATIVE (NEGATIVE) Group A Strep Antibody NOT DETECTED (NEGATIVE) 01/16/24 01/16/24 01/17/24 Range/Units 14:33 21:48 04:29 WBC 12.0 H (4.0-10.5) x10^3/uL RBC 4.43 (4.1-5.4) x10^6/uL Hgb 13.9 (12.0-16.0) g/dL Hct 41.7 (35-47) % MCV 94.1 (78-100) fL MCH 31.4 (26-32) pg MCHC 33.3 (32-36) g/dL RDW 13.8 (11.5-14.0) % Plt Count 115 L (150-450) x10^3/uL MPV 12.7 H (7.5-11.0) fL Gran % (36.0-66.0) % Immature Gran % (Auto) (0.00-0.4) % Nucleat RBC Rel Count (0.00-0.1) % Eos # (Auto) (0-0.5) x10^3/uL Immature Gran # (Auto) (0.00-0.03) x10^3u/L Absolute Lymphs (auto) (1.0-4.6) x10^3/uL Absolute Monos (auto) (0.0-1.3) x10^3/uL Absolute Nucleated RBC (0.00-0.01) x10^3u/L Lymphocytes % (24.0-44.0) % Monocytes % (0.0-12.0) % Eosinophils % (0.00-5.0) % Basophils % (0.0-0.4) % Absolute Granulocytes (1.4-6.9) x10^3/uL Basophils # (0-0.4) x10^3/uL Sodium (135-145) mmol/L Potassium (3.5-5.1) mmol/L Chloride (98-107) mmol/L Carbon Dioxide (22-30) mmol/L Anion Gap (5-15) MEQ/L BUN (7-17) mg/dL Creatinine (0.52-1.04) mg/dL Estimated GFR ML/MIN Glucose (74-106) mg/dL POC Glucometer 81 (74 to 106) mg/dL Hemoglobin A1c (4.5-6.0) % Lactic Acid (0.4-2.0) Calcium (8.4-10.2) mg/dL Total Bilirubin (0.2-1.3) mg/dL AST (14-36) U/L ALT (0-35) U/L Alkaline Phosphatase (38-126) U/L Serum Total Protein (6.3-8.2) g/dL Albumin (3.5-5.0) g/dL Urine Color Yellow (Yellow) Urine Appearance Clear (Clear) Urine pH 5.5 (4.6-8.0) Ur Specific [place] 1.010 (1.005-1.030) Urine Protein 100 A (Negative) Urine Glucose (UA) Negative (Negative) mg/dL Urine Ketones Negative (Negative) Urine Blood Negative (Negative) Urine Nitrite Negative (Negative) Urine Bilirubin Negative (Negative) Urine Urobilinogen 1.0 A (0.2) mg/dL Ur Leukocyte Esterase Small A (Negative) U Hyaline Cast (Auto) NONE SEEN (0-2) /LPF Urine Microscopic RBC 0-2 (0-5) /HPF Urine Microscopic WBC 11-20 A (0-5) /HPF Ur Epithelial Cells None Seen (None Seen) /HPF Urine Bacteria Moderate A (None Seen) /HPF Urine Culture Reflexed ORDERED SEPARATELY (NO) Monoscreen (NEGATIVE) Influenza Type A Ag (NEGATIVE) Influenza Type B Ag (NEGATIVE) RSV (PCR) (NEGATIVE) SARS-CoV-2 (PCR) (NEGATIVE) Group A Strep Antibody (NEGATIVE) 01/17/24 01/17/24 01/17/24 Range/Units 04:29 04:29 04:30 WBC (4.0-10.5) x10^3/uL RBC (4.1-5.4) x10^6/uL Hgb (12.0-16.0) g/dL Hct (35-47) % MCV (78-100) fL MCH (26-32) pg MCHC (32-36) g/dL RDW (11.5-14.0) % Plt Count (150-450) x10^3/uL MPV (7.5-11.0) fL Gran % (36.0-66.0) % Immature Gran % (Auto) (0.00-0.4) % Nucleat RBC Rel Count (0.00-0.1) % Eos # (Auto) (0-0.5) x10^3/uL Immature Gran # (Auto) (0.00-0.03) x10^3u/L Absolute Lymphs (auto) (1.0-4.6) x10^3/uL Absolute Monos (auto) (0.0-1.3) x10^3/uL Absolute Nucleated RBC (0.00-0.01) x10^3u/L Lymphocytes % (24.0-44.0) % Monocytes % (0.0-12.0) % Eosinophils % (0.00-5.0) % Basophils % (0.0-0.4) % Absolute Granulocytes (1.4-6.9) x10^3/uL Basophils # (0-0.4) x10^3/uL Sodium 135 (135-145) mmol/L Potassium 3.5 (3.5-5.1) mmol/L Chloride 104 (98-107) mmol/L Carbon Dioxide 26 (22-30) mmol/L Anion Gap 8.3 (5-15) MEQ/L BUN 36 H (7-17) mg/dL Creatinine 1.74 H (0.52-1.04) mg/dL Estimated GFR 34.2 ML/MIN Glucose 123 H (74-106) mg/dL POC Glucometer (74 to 106) mg/dL Hemoglobin A1c 6.05 H (4.5-6.0) % Lactic Acid 1.0 (0.4-2.0) Calcium 8.2 L (8.4-10.2) mg/dL Total Bilirubin 0.50 (0.2-1.3) mg/dL AST 40 H (14-36) U/L ALT 33 (0-35) U/L Alkaline Phosphatase 196 H (38-126) U/L Serum Total Protein 5.8 L (6.3-8.2) g/dL Albumin 2.9 L (3.5-5.0) g/dL Urine Color (Yellow) Urine Appearance (Clear) Urine pH (4.6-8.0) Ur Specific [place] (1.005-1.030) Urine Protein (Negative) Urine Glucose (UA) (Negative) mg/dL Urine Ketones (Negative) Urine Blood (Negative) Urine Nitrite (Negative) Urine Bilirubin (Negative) Urine Urobilinogen (0.2) mg/dL Ur Leukocyte Esterase (Negative) U Hyaline Cast (Auto) (0-2) /LPF Urine Microscopic RBC (0-5) /HPF Urine Microscopic WBC (0-5) /HPF Ur Epithelial Cells (None Seen) /HPF Urine Bacteria (None Seen) /HPF Urine Culture Reflexed (NO) Monoscreen (NEGATIVE) Influenza Type A Ag (NEGATIVE) Influenza Type B Ag (NEGATIVE) RSV (PCR) (NEGATIVE) SARS-CoV-2 (PCR) (NEGATIVE) Group A Strep Antibody (NEGATIVE) 01/17/24 Range/Units 06:43 WBC (4.0-10.5) x10^3/uL RBC (4.1-5.4) x10^6/uL Hgb (12.0-16.0) g/dL Hct (35-47) % MCV (78-100) fL MCH (26-32) pg MCHC (32-36) g/dL RDW (11.5-14.0) % Plt Count (150-450) x10^3/uL MPV (7.5-11.0) fL Gran % (36.0-66.0) % Immature Gran % (Auto) (0.00-0.4) % Nucleat RBC Rel Count (0.00-0.1) % Eos # (Auto) (0-0.5) x10^3/uL Immature Gran # (Auto) (0.00-0.03) x10^3u/L Absolute Lymphs (auto) (1.0-4.6) x10^3/uL Absolute Monos (auto) (0.0-1.3) x10^3/uL Absolute Nucleated RBC (0.00-0.01) x10^3u/L Lymphocytes % (24.0-44.0) % Monocytes % (0.0-12.0) % Eosinophils % (0.00-5.0) % Basophils % (0.0-0.4) % Absolute Granulocytes (1.4-6.9) x10^3/uL Basophils # (0-0.4) x10^3/uL Sodium (135-145) mmol/L Potassium (3.5-5.1) mmol/L Chloride (98-107) mmol/L Carbon Dioxide (22-30) mmol/L Anion Gap (5-15) MEQ/L BUN (7-17) mg/dL Creatinine (0.52-1.04) mg/dL Estimated GFR ML/MIN Glucose (74-106) mg/dL POC Glucometer 134 H (74 to 106) mg/dL Hemoglobin A1c (4.5-6.0) % Lactic Acid (0.4-2.0) Calcium (8.4-10.2) mg/dL Total Bilirubin (0.2-1.3) mg/dL AST (14-36) U/L ALT (0-35) U/L Alkaline Phosphatase (38-126) U/L Serum Total Protein (6.3-8.2) g/dL Albumin (3.5-5.0) g/dL Urine Color (Yellow) Urine Appearance (Clear) Urine pH (4.6-8.0) Ur Specific [place] (1.005-1.030) Urine Protein (Negative) Urine Glucose (UA) (Negative) mg/dL Urine Ketones (Negative) Urine Blood (Negative) Urine Nitrite (Negative) Urine Bilirubin (Negative) Urine Urobilinogen (0.2) mg/dL Ur Leukocyte Esterase (Negative) U Hyaline Cast (Auto) (0-2) /LPF Urine Microscopic RBC (0-5) /HPF Urine Microscopic WBC (0-5) /HPF Ur Epithelial Cells (None Seen) /HPF Urine Bacteria (None Seen) /HPF Urine Culture Reflexed (NO) Monoscreen (NEGATIVE) Influenza Type A Ag (NEGATIVE) Influenza Type B Ag (NEGATIVE) RSV (PCR) (NEGATIVE) SARS-CoV-2 (PCR) (NEGATIVE) Group A Strep Antibody (NEGATIVE) Micro Results-Entire Visit: Microbiology 01/16/24 14:33 Urine Culture - Preliminary Catherized GRAM NEGATIVE ID AND SENSITIVITY PENDING 01/16/24 14:15 Blood Culture Gram Stain - Preliminary Blood 01/16/24 14:03 Blood Culture Gram Stain - Preliminary Blood Accuchecks Date 01/17/24 Date 01/16/24 Time 06:53 Time 22:00 - Radiology Exams Ordered Rad Exams-Entire Visit: Radiology Procedures Category Date Time Status ABDOMEN WITHOUT CONTRAST [CT] Routine Exams 01/16/24 17:13 Completed CHEST 1 VIEW (PORTABLE) Stat Exams 01/16/24 13:54 Completed - Procedures and Test Procedures and Tests throughout Hospitalization: Therapy Orders & Screens 01/16/24 16:31 PT Eval & Treat (MD Order) ONCE Reason for Eval:: weakness 2:2 UTI Diagnosis: Urinary tract infection 01/16/24 16:49 Smoking Cessation Education ONCE Comment: Diagnosis: Urinary tract infection Smoking Status: Current every day smoker How long have you smoked: years Approximately how many cigarettes per day: 1/2-1 PPD Do you dip or chew tobacco: No 01/16/24 17:43 Respiratory Therapy Assessment DAILY Comment: Diagnosis: Urinary tract infection Discharge Exam General Appearance: no apparent distress, alert Neurologic Exam: alert, oriented x 3, cooperative, normal mood/affect, nml cerebellar function, sensation nml, No motor deficits Eye Exam: PERRL, EOMI, eyes nml inspection Ears, Nose, Throat Exam: normal ENT inspection, pharynx normal, moist mucous membranes Neck Exam: normal inspection, non-tender, supple, full range of motion Respiratory Exam: normal breath sounds, lungs clear, No respiratory distress Cardiovascular Exam: regular rate/rhythm, normal heart sounds Gastrointestinal/Abdomen Exam: soft, tenderness (Right flank, and RUQ with palpation), No mass Pelvic Exam: deferred Rectal Exam: deferred Back Exam: normal inspection, normal range of motion, No CVA tenderness, No vertebral tenderness Extremity Exam: normal inspection, normal range of motion Skin Exam: normal color, warm, dry Final Diagnosis/Problem List - Final Discharge Diagnosis/Problem (1) Urinary tract infection Current Visit: Yes Status: Acute Code(s): N39.0 - URINARY TRACT INFECTION, SITE NOT SPECIFIED (2) Acute kidney injury Current Visit: Yes Status: Acute Code(s): N17.9 - ACUTE KIDNEY FAILURE, UNSPECIFIED (3) Abdominal pain Current Visit: Yes Status: Acute Code(s): R10.9 - UNSPECIFIED ABDOMINAL PAIN (4) Thrombocytopenia Current Visit: Yes Status: Acute (5) Hyperlipemia Current Visit: Yes Status: Chronic Code(s): E78.5 - HYPERLIPIDEMIA, UNSPECIFIED (6) GERD (gastroesophageal reflux disease) Current Visit: Yes Status: Chronic Code(s): K21.9 - GASTRO-ESOPHAGEAL REFLUX DISEASE WITHOUT ESOPHAGITIS (7) Depression with anxiety Current Visit: Yes Status: Chronic Code(s): F41.8 - OTHER SPECIFIED ANXIETY DISORDERS (8) Smoker Current Visit: Yes Status: Chronic Code(s): F17.200 - NICOTINE DEPENDENCE, UNSPECIFIED, UNCOMPLICATED (9) Morbid obesity with BMI of 40.0-44.9, adult Current Visit: Yes Status: Chronic Code(s): E66.01 - MORBID (SEVERE) OBESITY DUE TO EXCESS CALORIES; Z68.41 - BODY MASS INDEX [BMI] 40.0-44.9, ADULT (10) Type II diabetes mellitus Current Visit: Yes Status: Chronic Assessment & Plan: (1) Urinary tract infection Current Visit: Yes Status: Acute Assessment & Plan: - 1L NS gave in ER- Cont IVF at 100ml/hr - Ceftriaxone started in ER - Continue - Lactic acid 2.0 in ER- will recheck in AM - UC and BC x2 pending - WBC 16.7 - associated tachycardia - Platelets 126 01/16 - Continued Right flank pain - WBC 12- improved - CT abd: Impression: 1. Prominent and edematous right kidney with mild hydronephrosis, perinephric stranding, and mild hydroureter. Rule out distal obstructive uropathy. 2. Chronic findings including hiatal hernia, arteriosclerotic disease, chronic bony findings, fatty umbilical hernia, and old granulomatous disease. Code(s): N39.0 - URINARY TRACT INFECTION, SITE NOT SPECIFIED (2) Acute kidney injury Current Visit: Yes Status: Acute Assessment & Plan: - 2:2 UTI - IVF - creat 1.99- baseline normal - Hold metformin 01/16 - Creat 1.74- improved Code(s): N17.9 - ACUTE KIDNEY FAILURE, UNSPECIFIED (3) Abdominal pain Current Visit: Yes Status: Acute Qualifiers: Abdominal location: periumbilical Qualified Code(s): R10.33 - Periumbilical pain Assessment & Plan: - CT abd- pending- see above CT results Code(s): R10.9 - UNSPECIFIED ABDOMINAL PAIN (4) Thrombocytopenia Current Visit: Yes Status: Acute Assessment & Plan: - platelets 126- monitor - Likely 2:2 infection- no prior hx after reviewing old labs. - Chest XR Portable chest demonstrates normal heart and lungs with incidental left base calcified granuloma. Bony thorax intact with osteopenia and mild degenerative changes. 01/16 - Plt 115- likely 2:2 infection (5) Hyperlipemia Current Visit: Yes Status: Chronic Assessment & Plan: - hold statin for now Code(s): E78.5 - HYPERLIPIDEMIA, UNSPECIFIED (6) GERD (gastroesophageal reflux disease) Current Visit: Yes Status: Chronic Assessment & Plan: - Continue protonix Code(s): K21.9 - GASTRO-ESOPHAGEAL REFLUX DISEASE WITHOUT ESOPHAGITIS (7) Depression with anxiety Current Visit: Yes Status: Chronic Assessment & Plan: - Continue buspirone - Hold remeron d/t IMELDA Code(s): F41.8 - OTHER SPECIFIED ANXIETY DISORDERS (8) Smoker Current Visit: Yes Status: Chronic Assessment & Plan: - advised smoking cessation - nicotine patch Code(s): F17.200 - NICOTINE DEPENDENCE, UNSPECIFIED, UNCOMPLICATED (9) Morbid obesity with BMI of 40.0-44.9, adult Current Visit: Yes Status: Chronic Assessment & Plan: - advised ADA diet and exercise control Code(s): E66.01 - MORBID (SEVERE) OBESITY DUE TO EXCESS CALORIES; Z68.41 - BODY MASS INDEX [BMI] 40.0-44.9, ADULT (10) Type II diabetes mellitus Current Visit: Yes Status: Chronic Assessment & Plan: - Appears controlled per old A1C results - accuchecks ac/hs - Humalog s/s. - A1C - Carb Consistent diet (11) Hydronephrosis Current Visit: Yes Status: Acute Assessment & Plan: - Right as seen on CT - transfer to higher level of care as we do not have urology here. Code(s): N13.30 - UNSPECIFIED HYDRONEPHROSIS - Discharge Discharge Date: 01/17/24 Disposition: DC TO OTHER HOSP Condition: Fair Prescriptions: Continue Levothyroxine Sodium 150 Mcg [Synthroid 150 Mcg] 150 mcg PO DAILY Zolpidem Tartrate 10 mg PO HS Simvastatin [Zocor] 40 mg PO HS Albuterol Sulfate [Proair Respiclick] 2 puff IH Q4H PRN PRN PRN Reason: Shortness Of Breath/Wheezing PANTOPRAZOLE 40 mg Tablet [Protonix 40MG Tablet] 40 mg PO DAILY Colestipol HCl [Colestid] 2 gm PO DAILY Metformin HCl 500 mg [Glucophage 500 MG] 1,000 mg PO BIDWM Buspirone HCl 30 mg PO BIDPRN PRN PRN Reason: Anxiety Vilazodone HCl 40 mg PO DAILY ondansetron HCL [Ondansetron HCl] 4 mg PO Q6HPRN PRN PRN Reason: Nausea/Vomiting Oxycodone HCl 5 mg Ir [Oxy-IR 5 MG] 10 mg PO Q6HPRN PRN PRN Reason: Pain Mirtazapine [Remeron] 15 mg PO HS Follow up with: KEE ADLER PA [Primary Care Provider] -
[2024-01-17] MEDS: Protonix 40MG Tablet PO SCH (09:49)
[2024-01-17] MEDS: SYNTHROID 150 MCG PO SCH (09:49)
[2024-01-17] MEDS ORDERED: VILAZODONE HCL 40 MG PO SCH (10:00)
[2024-01-17] MEDS ORDERED: NON-FORMULARY ITEM (Colestipol Hcl [Colestid] 1 GM Tablet) PO SCH (10:00)
[2024-01-17] MEDS: ROCEPHIN 1 GM / 100 ML NaCl 1 GM/100 ML IVPB IV SCH (11:09)
[2024-01-17] MEDS: Hydromorphone 1 mg/ml Injection IV PRN (11:19)
[2024-01-17] MEDS: Hydromorphone 1 mg/ml Injection IV ONE (15:14)
[2024-01-17 16:17] VITALS: BP 129/60; PULSE 66; RESP 21; TEMP 97; O2SAT 99
== END 2024-01-17 15:20 ==
LOC: ED 13:26 → MED SURG 16:30
PROVIDERS: ADMIT Internal Medicine; ATTEND Internal Medicine
DX: N39.0 Urinary tract infection, site not specified (principal); N17.9 Acute kidney failure, unspecified; R10.9 Unspecified abdominal pain; E11.9 Type 2 diabetes mellitus without complications; D69.6 Thrombocytopenia, unspecified; E78.5 Hyperlipidemia, unspecified; K21.9 Gastro-esophageal reflux disease without esophagitis; F41.8 Other specified anxiety disorders; F17.200 Nicotine dependence, unspecified, uncomplicated; E66.01 Morbid (severe) obesity due to excess calories; Z68.41 Body mass index [BMI] 40.0-44.9, adult; N13.30 Unspecified hydronephrosis; E03.9 Hypothyroidism, unspecified; Z79.899 Other long term (current) drug therapy
CPT/HCPCS: 0241U; 36000; 36415; 71045; 74150; 80053; 81001; 82947; 83036; 83605; 85025; 85027; 86308; 87040; 87077; 87086; 87186; 87651; 94760; 96360; 96365; 96374; 96375; 99284; G0378; P9612; Q3014; J0696; J1170; J1644; A9270-GY

== ENCOUNTER 2024-02-04 13:02 | Emergency (ER) | payer MEDICARE ==
[2024-02-04 13:28] VITALS: TEMP 98.2
[2024-02-04 14:26] LABS: Absolute Neutrophil Ct (ANC) 8.91 x10^3/uL (1.4-6.9); BASOPHIL % 0.3 % (0.0-0.4); Basophil (Absolute #) 0.04 x10^3/uL (0-0.4); Eosinophil % 0.7 % (0.00-5.0); Hematocrit 44.7 % (35-47); Hemoglobin 14.4 g/dL (12.0-16.0); IMMATURE GRAN # 0.05 x10^3u/L (0.00-0.03); IMMATURE GRAN % 0.4 % (0.00-0.4); Lymphocyte (Absolute #) 4.13 x10^3/uL (1.0-4.6); Lymphocytes % 29.5 % (24.0-44.0); Mean Cell Volume 98.7 fL (78-100); Mean Corpuscular Hemoglobin 31.8 pg (26-32); Mean Corpuscular Hgb Concent. 32.2 g/dL (32-36); Mean Platelet Volume 11.2 fL (7.5-11.0); Monocyte (Absolute #) 0.77 x10^3/uL (0.0-1.3); Monocytes % 5.5 % (0.0-12.0); Neutrophil % 63.6 % (36.0-66.0); Platelet Count 309 x10^3/uL (150-450); Red Blood Count 4.53 x10^6/uL (4.1-5.4); Red Cell Distribution Width 13.9 % (11.5-14.0)
[2024-02-04 14:29] LABS: Appearance Clear (Clear); Bacteria None Seen /HPF (None Seen); Bilirubin Negative (Negative); Blood Negative (Negative); Epithelial Cells None Seen /HPF (None Seen); Glucose, Urine Negative (Negative); Hyaline Casts NONE SEEN /LPF (0-2); Ketones Negative (Negative); Leukocyte Esterase Moderate (Negative); Nitrite Negative (Negative); Protein,Urine Dip Negative (Negative); RBC 0-2 /HPF (0-5); Urobilinogen 0.2 mg/dL (0.2); WBC 21-50 /HPF (0-5)
[2024-02-04 14:30] LABS: ADD URINE CULTURE? YES (NO)
[2024-02-04 14:40] LABS: ALBUMIN 4.1 g/dL (3.5-5.0); ANION GAP 11.9 MEQ/L (5-15); BILIRUBIN,TOTAL 0.4 mg/dL (0.2-1.3); Calcium 9.7 mg/dL (8.4-10.2); Creatinine 1 1.15 mg/dL (0.52-1.04); EST GLOMERULAR FILTRATION RATE 56.3 ML/MIN; Potassium 3.7 mmol/L (3.5-5.1); Total Protein 7.1 g/dL (6.3-8.2)
[2024-02-04 15:03] LABS: INFLUENZA A NEGATIVE (NEGATIVE); INFLUENZA B NEGATIVE (NEGATIVE); RESPIRATORY SYNCTIAL VIRUS NEGATIVE (NEGATIVE); SARS-CoV-2 Xpert Express NEGATIVE (NEGATIVE)
[2024-02-04 15:38] VITALS: PULSE 81; RESP 23; O2SAT 94
--- NOTE | 2024-02-04 16:06 | ERPHSYRPT ---
- History of Present Illness Time Seen by Provider: 02/04/24 13:20 Source: patient Exam Limitations: no limitations Patient Subjective Stated Complaint: Pt went to her family doc today and was told that her "that my blood infection is back and to come to the hospital right now", pt did not have any blood work done at the doctors office today but did have a UA done and she does have a UTI Triage Nursing Assessment: Pt brought to the ER by her daughter, vitals wnl, rates pain as 8/10, pain in the lower abdomen/pubic region, nausea, denies vomit ing, last intake yesterday, last BM today, has urgency and frequency to urinate since yesterday morning, doesn't appear to be in any real distress Physician History: 53-year-old female presents to our ED for evaluation of suprapubic pain. Patient was advised that she has a urinary tract infection. Patient just completed a course of antibiotics for UTI. Patient's primary care doctor notified her that the urinary tract infection had not resolved. Patient was on Keflex. Patient symptoms are progressive. Symptoms are moderate in intensity. Palpation to the suprapubic region reproduces pain. No trauma no fever. No nausea no vomiting. Patient voices no other complaints or concerns at this time. Portions of this note were created with voice recognition technology. There may be grammatical, spelling, punctuation or sound alike errors Timing/Duration: today Severity: moderate Modifying Factors: Improves With: nothing Associated Symptoms: denies symptoms Allergies/Adverse Reactions: ethinyl estradiol [From Seasonale (91)] Allergy (Mild, Verified 02/04/24 13:28) levonorgestrel [From Seasonale (91)] Allergy (Mild, Verified 02/04/24 13:28) Home Medications: Albuterol Sulfate [Proair Respiclick] 2 puff IH Q4H PRN PRN 01/16/24 [History] Buspirone HCl 30 mg PO BIDPRN PRN 01/16/24 [History] Colestipol HCl [Colestid] 2 gm PO DAILY 01/16/24 [History] Levothyroxine Sodium 150 Mcg [Synthroid 150 Mcg] 150 mcg PO DAILY 01/16/24 [History] Metformin HCl 500 mg [Glucophage 500 MG] 1,000 mg PO BIDWM 01/16/24 [History] Mirtazapine [Remeron] 15 mg PO HS 01/16/24 [History] Oxycodone HCl 5 mg Ir [Oxy-IR 5 MG] 10 mg PO Q6HPRN PRN 01/16/24 [History] PANTOPRAZOLE 40 mg Tablet [Protonix 40MG Tablet] 40 mg PO DAILY 01/16/24 [History] Simvastatin [Zocor] 40 mg PO HS 01/16/24 [History] Vilazodone HCl 40 mg PO DAILY 01/16/24 [History] Zolpidem Tartrate 10 mg PO HS 01/16/24 [History] ondansetron HCL [Ondansetron HCl] 4 mg PO Q6HPRN PRN 01/16/24 [History] Hx Tetanus, Diphtheria Vaccination/Date Given: No Hx Influenza Vaccination/Date Given: No Hx Pneumococcal Vaccination/Date Given: No Travel Risk - International Travel Have you traveled outside of the country in past 3 weeks: No - Emerging Infectious Disease Are you exhibiting symptoms associated with any current EIDs: No Symptoms: Fever, Headaches/Body Aches/ - Review of Systems Constitutional: No Symptoms, No Fever, No Chills Eyes: No Symptoms Ears, Nose, & Throat: No Symptoms Respiratory: No Symptoms, No Cough, No Dyspnea Cardiac: No Symptoms, No Chest Pain, No Edema, No Syncope Abdominal/Gastrointestinal: No Symptoms, No Abdominal Pain, No Nausea, No Vomiting, No Diarrhea Genitourinary Symptoms: No Symptoms, No Dysuria Musculoskeletal: No Symptoms, No Back Pain, No Neck Pain Skin: No Symptoms, No Rash Neurological: No Symptoms, No Dizziness, No Focal Weakness, No Sensory Changes Psychological: No Symptoms Endocrine: No Symptoms Hematologic/Lymphatic: No Symptoms Immunological/Allergic: No Symptoms All Other Systems: Reviewed and Negative - Past Medical History Pertinent Past Medical History: Yes Neurological History: Migraines ENT History: No Pertinent History Cardiac History: High Cholesterol Respiratory History: No Pertinent History Endocrine Medical History: Diabetes Type II, Hypothyroidism Musculoskeletal History: Arthritis GI Medical History: GERD History: No Pertinent History Psycho-Social History: Anxiety, Depression Female Reproductive Disorders: No Pertinent History - Past Surgical History Past Surgical History: Yes Gastrointestinal: Cholecystectomy Female Surgical History: Section Other Surgical History: c section x 3. sandy - Social History Smoking Status: Current every day smoker How long have you smoked: years Exposure to second hand smoke: Yes Drug Use: none - Nursing Vital Signs Nursing Vital Signs: Initial Vital Signs Temperature 98.2 F 02/04/24 13:16 Pulse Rate 85 02/04/24 13:16 Respiratory Rate 26 H 02/04/24 13:16 Blood Pressure 136/66 02/04/24 13:16 O2 Sat by Pulse Oximetry 99 02/04/24 13:16 Pain Scale Pain Intensity 9 - Physical Exam General Appearance: no apparent distress, alert Eye Exam: PERRL/EOMI, eyes nml inspection Ears, Nose, Throat Exam: normal ENT inspection, TMs normal, pharynx normal, moist mucous membranes Neck Exam: normal inspection, non-tender, supple, full range of motion Respiratory Exam: normal breath sounds, lungs clear, No respiratory distress Cardiovascular Exam: regular rate/rhythm, normal heart sounds, normal peripheral pulses Gastrointestinal/Abdomen Exam: soft, normal bowel sounds, other (Mild suprapubic tenderness), No tenderness, No mass Back Exam: normal inspection, normal range of motion, No CVA tenderness, No vertebral tenderness Extremity Exam: normal inspection, normal range of motion, pelvis stable Neurologic Exam: alert, oriented x 3, cooperative, normal mood/affect, nml cerebellar function, nml station & gait, sensation nml, No motor deficits Skin Exam: normal color, warm, dry, No rash Lymphatic Exam: No adenopathy SpO2 Interpretation: normal SpO2: 94 O2 Delivery: Room Air - Course Nursing assessment & vital signs reviewed: Yes EKG Interpreted by Me: RATE (79), Sinus Rhythm, NORMAL AXIS, NORMAL INTERVALS - CT Exams Abdomen/Pelvis CT Interpretation: Tele-radiologist Report (Right nephritis improved with mild residual normal appendix no new acute findings) Ordered Tests: Active Orders 24 hr Category Date Time Status Carnival Worker STAT Care 02/04/24 13:53 Active EKG-ER Only STAT Care 02/04/24 13:53 Active Pulse Oximetry (ED) STAT Care 02/04/24 13:53 Active ABDOMEN AND PELVIS W/0 CONTRAS [CT] Stat Exams 02/04/24 16:51 Taken BLOOD CULTURE Stat Lab 02/04/24 13:53 Received CBC W DIFF Stat Lab 02/04/24 14:05 Completed CMP Stat Lab 02/04/24 14:05 Completed CULTURE,URINE Stat Lab 02/04/24 14:24 Received Lactic Acid Stat Lab 02/04/24 13:53 Completed UA W/RFX UR CULTURE Stat Lab 02/04/24 14:24 Completed Medication Summary Generic Name Dose Route Start Last Admin Trade Name Helen PRN Reason Stop Dose Admin Sodium Chloride 1,000 mls @ 100 mls/hr 02/04/24 14:00 02/04/24 16:20 Sodium Chloride 0.9% 1000 Ml IV 03/05/24 13:59 Not Given .Q10H JOSE Discontinued Medications Generic Name Dose Route Start Last Admin Trade Name Helen PRN Reason Stop Dose Admin Hydrocodone Bitart/Acetaminophen 1 tab 02/04/24 16:49 02/04/24 16:53 Hydrocodone/Apap 5/325 1 Tab Tablet PO 02/04/24 16:50 1 tab STAT ONE Administration Hydrocodone Bitart/Acetaminophen Confirm 02/04/24 16:52 Hydrocodone/Apap 5/325 1 Tab Tablet Administered 02/04/24 16:53 Dose 1 tab .ROUTE .STK-MED ONE Alprazolam 0.5 mg 02/04/24 18:07 Alprazolam 0.5 Mg Tablet PO 02/04/24 18:08 STAT ONE Levofloxacin 500 mg 02/04/24 16:09 02/04/24 16:15 Levofloxacin 500 Mg Tablet PO 02/04/24 16:10 500 mg STAT ONE Administration Levofloxacin Confirm 02/04/24 16:13 Levofloxacin 500 Mg Tablet Administered 02/04/24 16:14 Dose 500 mg .ROUTE .STK-MED ONE Lab/Rad Data: Laboratory Result Diagrams 02/04/24 14:05 02/04/24 14:05 Laboratory Results 02/04/24 02/04/24 02/04/24 Range/Units 14:24 14:05 14:05 WBC (4.0-10.5) x10^3/uL RBC (4.1-5.4) x10^6/uL Hgb (12.0-16.0) g/dL Hct (35-47) % MCV (78-100) fL MCH (26-32) pg MCHC (32-36) g/dL RDW (11.5-14.0) % Plt Count (150-450) x10^3/uL MPV (7.5-11.0) fL Gran % (36.0-66.0) % Immature Gran % (Auto) (0.00-0.4) % Nucleat RBC Rel Count (0.00-0.1) % Eos # (Auto) (0-0.5) x10^3/uL Immature Gran # (Auto) (0.00-0.03) x10^3u/L Absolute Lymphs (auto) (1.0-4.6) x10^3/uL Absolute Monos (auto) (0.0-1.3) x10^3/uL Absolute Nucleated RBC (0.00-0.01) x10^3u/L Lymphocytes % (24.0-44.0) % Monocytes % (0.0-12.0) % Eosinophils % (0.00-5.0) % Basophils % (0.0-0.4) % Absolute Granulocytes (1.4-6.9) x10^3/uL Basophils # (0-0.4) x10^3/uL Sodium 142 (135-145) mmol/L Potassium 3.7 (3.5-5.1) mmol/L Chloride 107 (98-107) mmol/L Carbon Dioxide 26 (22-30) mmol/L Anion Gap 11.9 (5-15) MEQ/L BUN 14 (7-17) mg/dL Creatinine 1.15 H (0.52-1.04) mg/dL Estimated GFR 56.3 ML/MIN Glucose 93 (74-106) mg/dL Lactic Acid (0.4-2.0) Calcium 9.7 (8.4-10.2) mg/dL Total Bilirubin 0.40 (0.2-1.3) mg/dL AST 17 (14-36) U/L ALT 15 (0-35) U/L Alkaline Phosphatase 152 H (38-126) U/L Serum Total Protein 7.1 (6.3-8.2) g/dL Albumin 4.1 (3.5-5.0) g/dL Urine Color Yellow (Yellow) Urine Appearance Clear (Clear) Urine pH 7.0 (4.6-8.0) Ur Specific [place] 1.010 (1.005-1.030) Urine Protein Negative (Negative) Urine Glucose (UA) Negative (Negative) mg/dL Urine Ketones Negative (Negative) Urine Blood Negative (Negative) Urine Nitrite Negative (Negative) Urine Bilirubin Negative (Negative) Urine Urobilinogen 0.2 (0.2) mg/dL Ur Leukocyte Esterase Moderate A (Negative) U Hyaline Cast (Auto) NONE SEEN (0-2) /LPF Urine Microscopic RBC 0-2 (0-5) /HPF Urine Microscopic WBC 21-50 A (0-5) /HPF Ur Epithelial Cells None Seen (None Seen) /HPF Urine Bacteria None Seen (None Seen) /HPF Urine Culture Reflexed YES (NO) Influenza Type A Ag NEGATIVE (NEGATIVE) Influenza Type B Ag NEGATIVE (NEGATIVE) RSV (PCR) NEGATIVE (NEGATIVE) SARS-CoV-2 (PCR) NEGATIVE (NEGATIVE) 02/04/24 02/04/24 Range/Units 14:05 13:53 WBC 14.0 H (4.0-10.5) x10^3/uL RBC 4.53 (4.1-5.4) x10^6/uL Hgb 14.4 (12.0-16.0) g/dL Hct 44.7 (35-47) % MCV 98.7 (78-100) fL MCH 31.8 (26-32) pg MCHC 32.2 (32-36) g/dL RDW 13.9 (11.5-14.0) % Plt Count 309 (150-450) x10^3/uL MPV 11.2 H (7.5-11.0) fL Gran % 63.6 (36.0-66.0) % Immature Gran % (Auto) 0.4 (0.00-0.4) % Nucleat RBC Rel Count 0.0 (0.00-0.1) % Eos # (Auto) 0.10 (0-0.5) x10^3/uL Immature Gran # (Auto) 0.05 H (0.00-0.03) x10^3u/L Absolute Lymphs (auto) 4.13 (1.0-4.6) x10^3/uL Absolute Monos (auto) 0.77 (0.0-1.3) x10^3/uL Absolute Nucleated RBC 0.00 (0.00-0.01) x10^3u/L Lymphocytes % 29.5 (24.0-44.0) % Monocytes % 5.5 (0.0-12.0) % Eosinophils % 0.7 (0.00-5.0) % Basophils % 0.3 (0.0-0.4) % Absolute Granulocytes 8.91 H (1.4-6.9) x10^3/uL Basophils # 0.04 (0-0.4) x10^3/uL Sodium (135-145) mmol/L Potassium (3.5-5.1) mmol/L Chloride (98-107) mmol/L Carbon Dioxide (22-30) mmol/L Anion Gap (5-15) MEQ/L BUN (7-17) mg/dL Creatinine (0.52-1.04) mg/dL Estimated GFR ML/MIN Glucose (74-106) mg/dL Lactic Acid 0.8 (0.4-2.0) Calcium (8.4-10.2) mg/dL Total Bilirubin (0.2-1.3) mg/dL AST (14-36) U/L ALT (0-35) U/L Alkaline Phosphatase (38-126) U/L Serum Total Protein (6.3-8.2) g/dL Albumin (3.5-5.0) g/dL Urine Color (Yellow) Urine Appearance (Clear) Urine pH (4.6-8.0) Ur Specific [place] (1.005-1.030) Urine Protein (Negative) Urine Glucose (UA) (Negative) mg/dL Urine Ketones (Negative) Urine Blood (Negative) Urine Nitrite (Negative) Urine Bilirubin (Negative) Urine Urobilinogen (0.2) mg/dL Ur Leukocyte Esterase (Negative) U Hyaline Cast (Auto) (0-2) /LPF Urine Microscopic RBC (0-5) /HPF Urine Microscopic WBC (0-5) /HPF Ur Epithelial Cells (None Seen) /HPF Urine Bacteria (None Seen) /HPF Urine Culture Reflexed (NO) Influenza Type A Ag (NEGATIVE) Influenza Type B Ag (NEGATIVE) RSV (PCR) (NEGATIVE) SARS-CoV-2 (PCR) (NEGATIVE) - Departure Departure Disposition: Home Clinical Impression: UTI (urinary tract infection), Leukocytosis, resolving nephritis Condition: Stable Critical Care Time: No Referrals: KEE ADLER PA [Primary Care Provider] - Follow up/PCP as directed Additional Instructions: Please follow-up with your primary care doctor within 48 hours for reevaluation. You may benefit from an outpatient renal ultrasound to further evaluate the progress of your kidney infection Discharge/Care Plan CHATO CARRENO was seen on 02/04/24 in the Emergency Room. The patient was counseled regarding Diagnosis,Lab results, Imaging studies, need for follow up and when to return to the Emergency Room. Prescriptions given: Discharge Note I have spoken with the patient and/or caregivers. I have explained the patient's condition, diagnosis and treatment plan based on the information available to me at this time. I have answered the patient's and/or caregiver's questions and addressed any concerns. The patient and/or caregivers have as good understanding of the patient's diagnosis, condition and treatment plan as can be expected at this point. The vital signs have been stable. The patient's condition is stable and appropriate for discharge from the emergency department. The patient will pursue further outpatient evaluation with the primary care physician or other designated or consulting physician as outlined in the discharge instructions. The patient and/or caregivers are agreeable to this plan of care and follow-up instructions have been explained in detail. The patient and/or caregivers have received these instruction. The patient/and or caregivers are aware that any significant change in condition or worsening of symptoms should prompt an immediate return to this or the closest emergency department or call 911.
[2024-02-04 16:11] VITALS: BP 121/66
[2024-02-04] MEDS ORDERED: Levofloxacin 500 MG Tablet ONE (16:13)
[2024-02-04] MEDS: Levofloxacin 500 MG Tablet PO ONE (16:15)
[2024-02-04] MEDS: Sodium Chloride 0.9% 1000 ML 1,000 ML IV SCH (16:20)
[2024-02-04] MEDS ORDERED: NORCO 5/325 MG ONE (16:52)
[2024-02-04] MEDS: NORCO 5/325 MG PO ONE (16:53)
[2024-02-04] MEDS: xanAX 0.5 MG PO ONE (18:23)
--- NOTE | 2024-02-05 08:44 | XRAY ---
Indication: Right flank pain. Multiple contiguous axial images obtained through the abdomen and pelvis without contrast. Comparison: CT abdomen January 16, 2024 Lung bases demonstrate stable small left lower lobe calcified granuloma. No infiltrate or effusion. Heart not enlarged. Stomach fluid distended. Noncontrasted stomach and bowel loops appear nonobstructed. Normal appendix. Again incidental splenic calcified granulomas and cholecystectomy. No free fluid/air. Previous right renal prominence and edema appears mildly improved presumed inflammatory/infectious in etiology. No renal calculus or evidence for obstructive uropathy in either system. Uterus demonstrates IUD in situ. Remaining liver, pancreas, spleen, adrenal glands, kidneys, ureters, bladder, and uterus are unremarkable for noncontrast exam. Again mild scattered aortoiliac calcifications without AAA. Osseous structures intact again with mild degenerative changes throughout spine. Impression: 1. Right renal improvement appearing smaller with diminished perinephric stranding. Findings likely inflammatory/infectious such as nephritis. 2. Again chronic findings including arteriosclerotic disease, chronic bony findings, and old granulomatous disease. 3. No new/acute intra-abdominal/pelvic abnormalities on this noncontrast exam.
== END 2024-02-04 18:26 | disposition home or self-care (01) ==
LOC: ED 13:02
DX: N39.0 Urinary tract infection, site not specified (principal); D72.829 Elevated white blood cell count, unspecified; N05.9 Unspecified nephritic syndrome with unspecified morphologic changes; R10.2 Pelvic and perineal pain; E78.5 Hyperlipidemia, unspecified; E11.9 Type 2 diabetes mellitus without complications; Z79.84 Long term (current) use of oral hypoglycemic drugs; Z79.891 Long term (current) use of opiate analgesic; Z79.899 Other long term (current) drug therapy; Z72.0 Tobacco use
CPT/HCPCS: 0241U; 36415; 74176; 80053; 81001; 83605; 85025; 87040; 87077; 87086; 87186; 93005; 94760; 99284; A9270-GY